=== PATIENT | male | born 1960 | race Caucasian/White ===

== ENCOUNTER 2022-04-27 16:12 | Emergency (ER) | payer OTHER | END 2022-04-27 20:42 | disposition home or self-care (01) | LOC: ER1 16:12 | DX: S51.811A Laceration without foreign body of right forearm, initial encounter (principal); S81.811A Laceration without foreign body, right lower leg, initial encounter; S46.912A Strain of unspecified muscle, fascia and tendon at shoulder and upper arm level, left arm, initial encounter; S60.222A Contusion of left hand, initial encounter; F17.200 Nicotine dependence, unspecified, uncomplicated; I73.9 Peripheral vascular disease, unspecified; V89.2XXA Person injured in unspecified motor-vehicle accident, traffic, initial encounter; Y92.410 Unspecified street and highway as the place of occurrence of the external cause | CPT/HCPCS: 71045; 72125; 73030; 73090; 73130; 90471; 90715; 99283 ==